=== PATIENT | female | born 1970 | race Two or more races ===

== ENCOUNTER 2017-10-06 19:31 | Emergency (ER) | payer SELFPAY ==
[~2017-10-06] VITALS: Ht 165.1 cm; Wt 73.5 kg
--- NOTE | 2017-10-06 19:50 | NUR ---
DR. ORDONEZ AT BEDSIDE FOR MSE.
--- NOTE | 2017-10-06 21:07 | NUR ---
Patient discharged to home in stable conditon. Written and verbal after care instructions given. Patient verbalizes understanding of instructions. PATIENT LEFT WITH AMBULATING WITH CRUTCHES.
[2017-10-06 21:08] VITALS: BP 122/74
== END 2017-10-06 21:09 | disposition home or self-care (01) ==
LOC: ER 19:33
DX: S82.832A Other fracture of upper and lower end of left fibula, initial encounter for closed fracture (principal); W01.0XXA Fall on same level from slipping, tripping and stumbling without subsequent striking against object, initial encounter; Y93.89 Activity, other specified; Y92.89 Other specified places as the place of occurrence of the external cause; Y99.8 Other external cause status
CPT/HCPCS: 29515; 73610; 99284; A4663